=== PATIENT | female | born 1990 | race Hispanic/Latino ===

== ENCOUNTER 2017-07-10 15:22 | Emergency (ER) | payer BC ==
--- NOTE | 2017-07-10 15:40 | ED PDOC ---
HPI: Abdomen Time Seen by Provider: 07/10/17 15:40 Chief Complaint (Nursing): Abdominal Pain Chief Complaint (Provider): abd pain History Per: Patient Additional Complaint(s): 27-year-old female presents with intermittent right lower quadrant pain 3 days with no associated vomiting or diarrhea. Patient does have history of constipation but did have a bowel movement today for the first time in 3 days. Upon arrival she rates her pain as a 1 out of 10. She states last night the pain was a 9 out of 10 but subsided. No meds taken for pain relief. Patient denies any dysuria, hematuria, vaginal discharge or vaginal bleeding. Patient denies concern for . She states she was recently treated for a yeast infection with 1 tablet of Diflucan. PMD: none Past Medical History Reviewed: Historical Data, Nursing Documentation, Vital Signs Vital Signs: Last Vital Signs Temp 97.7 F 07/10/17 15:27 Pulse 76 07/10/17 15:27 Resp 18 07/10/17 15:27 BP 122/78 07/10/17 15:27 Pulse Ox 99 07/10/17 16:19 - Medical History PMH: No Chronic Diseases - Surgical History Surgical History: No Surg Hx - Family History Family History: States: No Known Family Hx - Living Arrangements Living Arrangements: With Family - Social History Current smoker - smoking cessation education provided: No Alcohol: Social Drugs: Denies - Home Medications Home Medications: Ambulatory Orders Medication Instructions Recorded Nitrofurantoin Macrocrystals 100 mg PO BID #14 cap 07/10/17 [Macrobid] - Allergies Allergies/Adverse Reactions: Allergies Allergy/AdvReac Type Severity Reaction Status Date / Time No Known Allergies Allergy Verified 07/10/17 15:26 Review of Systems ROS Statement: Except As Marked, All Systems Reviewed And Found Negative Constitutional: Negative for: Fever, Chills Cardiovascular: Negative for: Chest Pain Respiratory: Negative for: Cough Gastrointestinal: Positive for: Abdominal Pain, Constipation. Negative for: Nausea, Vomiting, Diarrhea Genitourinary Female: Negative for: Dysuria Physical Exam - Reviewed Nursing Documentation Reviewed: Yes Vital Signs Reviewed: Yes - Physical Exam Appears: Positive for: Well, Non-toxic, No Acute Distress Skin: Negative for: Rash Eye Exam: Positive for: Normal appearance Cardiovascular/Chest: Positive for: Regular Rate, Rhythm Respiratory: Positive for: Normal Breath Sounds Gastrointestinal/Abdominal: Positive for: Soft. Negative for: Tenderness, Distended, Guarding, Rebound Back: Negative for: L CVA Tenderness, R CVA Tenderness Extremity: Positive for: Normal ROM Neurologic/Psych: Positive for: Alert, Oriented - Laboratory Results Result Diagrams: 07/10/17 16:39 07/10/17 16:39 Urine POC: Negative Urine dip results: Positive for: Leukocyte Esterase (small). Negative for: Blood, Nitrate, Ketones, Glucose, Bilirubin, Protein - ECG O2 Sat by Pulse Oximetry: 99 Pulse Ox Interpretation: Normal - Other Rad KUB X-Ray: Interpreted by Me, Viewed By Me X-Ray Interpretation: see below Medical Decision Making Medical Decision Makin27 year old with abdominal pain Plan: Urine dip and preg CBC CMP Lipase UA Urine culture KUB Pain meds declined KUB: BOWEL: No evidence acute mechanical bowel obstruction. Moderately large amount of stool seen within the cecum ascending and to a lesser degree remaining colon consistent with this patient's history of constipation. BONES: Minor no acute displaced or compression fractures of the visualized lower thoracic and/lumbar spine. There appears to be a very subtle levoscoliosis. OTHER FINDINGS: None. IMPRESSION: Findings consistent with this patient's history of constipation. Patient is aware of all diagnostic testing results, all questions answered. Patient has not experienced recurrence of pain since she arrived in ED. Prescription for Macrobid given for UTI. 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 Patient is aware she can return anytime to emergency department if symptoms acutely worsen. Disposition - Clinical Impression Clinical Impression: Urinary tract infection, Constipation - Patient ED Disposition Is Patient to be Admitted: No Counseled Patient/Family Regarding: Studies Performed, Diagnosis, Need For Followup, Rx Given - Disposition Referrals: [facility] [Outside] Disposition: Routine/Home Disposition Time: 17:46 Condition: STABLE Additional Instructions: Take prescription meds as directed. Take [id number] Tylenol or Advil as needed for pain. Follow dietary instructions. Follow-up with primary doctor for any persistent symptoms. Prescriptions: Nitrofurantoin Macrocrystals [Macrobid] 100 mg PO BID #14 cap Instructions: Constipation, Adult (DC), Urinary Tract Infection, Adult (DC), High Fiber Diet Forms: [employer] (Bulgarian)
[2017-07-10 16:44] LABS: BASO % 0.4 % (0.0-2.0); EOS # 0.1 K/uL (0.0-0.7); EOS % 2.2 % (0.0-4.0); LYMPH # 1.9 K/uL (1.0-4.3); LYMPH % 33.5 % (20.0-40.0); MEAN CELL VOLUME 84.9 fl (81.0-99.0); MEAN CORPUSCULAR HEMOGLOBIN 27.8 pg (27.0-31.0); MEAN CORPUSCULAR HGB CONC 32.7 g/dL (33.0-37.0); MEAN PLATELET VOLUME 8.1 fl (7.2-11.7); MONO # 0.6 K/uL (0.0-0.8); MONO % 10.3 % (0.0-10.0); NEUT # 3.1 K/uL (1.8-7.0); NEUT % 53.6 % (50.0-75.0); RBC 4.33 Mil/uL (3.80-5.20); RED CELL DISTRIBUTION WIDTH 17.2 % (11.5-14.5); WHITE BLOOD COUNT 5.8 K/uL (4.8-10.8)
[2017-07-10 16:53] LABS: ALB/GLOB RATIO 1.2 (1.0-2.1); ALBUMIN 4.1 g/dL (3.5-5.0); ALT/SGPT 20 U/L (9-52); AST/SGOT 15 U/L (14-36); BLOOD UREA NITROGEN 15 mg/dl (7-17); CALCIUM 9.5 mg/dL (8.4-10.2); GFR AFRICAN-AMERICAN > 60; GFR NON-AFRICAN AMERICAN > 60; LIPASE 98 U/L (23-300)
[2017-07-10 16:54] LABS: SQUAMOUS EPITHIAL 3 /hpf (0-5); URINE BACTERIA RARE (<OCC); URINE BILIRUBIN NEGATIVE (NEGATIVE); URINE BLOOD NEGATIVE (NEGATIVE); URINE CLARITY SLIGHTY-CLOUDY (Clear); URINE COLOR STRAW (YELLOW); URINE GLUCOSE (UA) NEG (Normal); URINE LEUKOCYTE ESTERASE TRACE Leu/uL (Negative); URINE PROTEIN NEGATIVE (NEGATIVE); URINE UROBILINOGEN 0.2-1.0 mg/dL (0.2-1.0)
--- NOTE | 2017-07-10 17:19 | RAD ---
HISTORY: Constipation. COMPARISON: No prior. FINDINGS: BOWEL: No evidence acute mechanical bowel obstruction. Moderately large amount of stool seen within the cecum ascending and to a lesser degree remaining colon consistent with this patient's history of constipation. BONES: Minor no acute displaced or compression fractures of the visualized lower thoracic and/lumbar spine. There appears to be a very subtle levoscoliosis. OTHER FINDINGS: None. IMPRESSION: Findings consistent with this patient's history of constipation.
[2017-07-10 18:01] VITALS: BP 103/70; PULSE 64; RESP 16; TEMP 98.6; O2SAT 100
== END 2017-07-10 18:09 | disposition home or self-care (01) ==
LOC: H.ER 15:22
DX: N39.0 Urinary tract infection, site not specified (principal); K59.00 Constipation, unspecified